=== PATIENT | male | born 1950 | race Caucasian/White ===

== ENCOUNTER → 2016-11-19 | Outpatient (CLI) | payer OTHER | END | disposition home or self-care (01) | LOC: CFH 10:41 | PROVIDERS: ATTEND Internal Medicine | DX: M51.37 Other intervertebral disc degeneration, lumbosacral region (principal); M51.36 Other intervertebral disc degeneration, lumbar region; M48.06 Spinal stenosis, lumbar region; M43.16 Spondylolisthesis, lumbar region; M12.88 Other specific arthropathies, not elsewhere classified, other specified site; M25.78 Osteophyte, vertebrae | CPT/HCPCS: 72148 ==

== ENCOUNTER 2017-02-17 11:08 | Inpatient (IN) | payer OTHER, MEDICARE ==
[~2017-02-17] VITALS: Ht 182.9 cm; Wt 101.0 kg
[2017-02-17] MEDS ORDERED: ROSU40TA PO (11:24)
[2017-02-17] MEDS ORDERED: ASPI-496 PO (11:24)
[2017-02-17] MEDS ORDERED: LOSA1TAB25 PO (11:25)
[2017-02-17] MEDS ORDERED: METO-93 PO (11:25)
[2017-02-17] MEDS ORDERED: FLUO20TA25 PO (11:26)
[2017-02-17] MEDS ORDERED: PANT40TA3 PO (11:27)
[2017-02-17] MEDS ORDERED: CHOL5000 PO (11:28)
[2017-02-17] MEDS ORDERED: FLUT9.9S16 NAS (11:30)
[2017-02-17] MEDS ORDERED: BRIN10DR LEFTEYE (11:31)
[2017-02-17] MEDS ORDERED: OLOP5DRO EACHEYE (11:32)
[2017-02-17] MEDS ORDERED: UBID100C41 PO (11:32)
[2017-02-17] MEDS ORDERED: SELE200T10 PO (11:33)
[2017-02-17] MEDS ORDERED: OMEG-14 PO (11:34)
[2017-02-17] MEDS ORDERED: MAGN500T PO (11:35)
[2017-02-17] MEDS ORDERED: LACT1CAP43 PO (11:35)
[2017-02-17 12:15] LABS: HEMOGLOBIN 15.8 g/dL (13.7-18.0); WHITE BLOOD COUNT 6.6 x10^3/uL (3.4-10)
[2017-02-17 12:24] LABS: BLOOD UREA NITROGEN 22 mg/dL (7-18)
[2017-02-17 12:31] LABS: IS PT STATUS REG ER OR PRE ER? YES
[2017-02-17] MEDS ORDERED: NITROGLYCERIN SINGLE TAB 0.4 MG SL PRN (15:00)
[2017-02-17] MEDS ORDERED: ACETAMINOPHEN 650 MG/20.3 ML UDC PO PRN (15:00)
[2017-02-17] MEDS ORDERED: morphine SULFATE 10 MG/ML, 1ML IV PRN (15:00)
[2017-02-17] MEDS ORDERED: ONDANSETRON 2MG/ML, 2ML IVP PRN (15:00)
[2017-02-17] MEDS ORDERED: POTASSIUM CHLORIDE 20 MEQ TAB.ER.PRT PO ONE (15:00)
[2017-02-17] MEDS ORDERED: ENOXAPARIN 40 MG/0.4 ML ONE (15:49)
[2017-02-17] MEDS ORDERED: POTASSIUM CHLORIDE 20 MEQ TAB.ER.PRT ONE (15:49)
[2017-02-17] MEDS: ENOXAPARIN 40 MG/0.4 ML SQ SCH (15:52)
[2017-02-17] MEDS: SUCRALFATE 1 GM/10 ML UDC PO SCH ×2 (17:02→22:08)
[2017-02-17 20:44] LABS: IS PT STATUS REG ER OR PRE ER? YES
[2017-02-17 20:51] VITALS: BP 154/92
[2017-02-17] MEDS ORDERED: LOSARTAN 50MG TABLET PO SCH (21:00)
[2017-02-17] MEDS ORDERED: METOPROLOL SUCCINATE 50 MG TAB.ER.24H PO SCH (21:00)
[2017-02-17] MEDS ORDERED: HYDROCHLOROTHIAZIDE 12.5 MG CAPSULE PO SCH (21:00)
[2017-02-17] MEDS ORDERED: ATORVASTATIN 80 MG TABLET PO SCH (21:00)
[2017-02-17] MEDS: BRINZOLAMIDE LEFTEYE SCH (21:00)
[2017-02-17] MEDS: SODIUM CHLORIDE FLUSH 10ML SYR IVF SCH (22:08)
[2017-02-17] MEDS: PANTOPROZOLE 40MG TABLET PO SCH (22:09)
[2017-02-18 00:59] VITALS: BP 143/74
[2017-02-18] MEDS ORDERED: ASPIRIN 325 MG TABLET EC PO SCH (06:00)
[2017-02-18] MEDS: SUCRALFATE 1 GM/10 ML UDC PO SCH ×2 (07:00→14:24)
[2017-02-18 07:20] VITALS: BP 137/84
[2017-02-18] MEDS ORDERED: REGADENOSON 0.4 MG/5 ML SYRINGE ONE (08:21)
[2017-02-18 08:27] LABS: ASPARTATE AMINO TRANSFERASE 18 U/L (15-37); BLOOD UREA NITROGEN 22 mg/dL (7-18)
[2017-02-18 08:32] LABS: IS PT STATUS REG ER OR PRE ER? NO
[2017-02-18 08:33] LABS: HEMATOCRIT 45.9 % (39.2-51.8); HEMOGLOBIN 15.9 g/dL (13.7-18.0); WHITE BLOOD COUNT 5.4 x10^3/uL (3.4-10)
[2017-02-18] MEDS ORDERED: MAGNESIUM OXIDE 400 MG TABLET PO SCH (09:00)
[2017-02-18] MEDS ORDERED: FLUTICASONE NASAL SPRAY 16GM NAS SCH (09:00)
[2017-02-18] MEDS ORDERED: FLUOXETINE 20 MG CAPSULE PO SCH (09:00)
[2017-02-18] MEDS: SODIUM CHLORIDE FLUSH 10ML SYR IVF SCH (09:00)
[2017-02-18] MEDS ORDERED: LACTOBACILLUS CHEW TABLET PO SCH (09:00)
[2017-02-18] MEDS ORDERED: SELENOMETHIONINE 200 MCG PO SCH (09:00)
[2017-02-18] MEDS ORDERED: OMEGA-3/FISH OIL CAPSULE PO SCH (09:00)
[2017-02-18] MEDS: BRINZOLAMIDE LEFTEYE SCH (09:00)
[2017-02-18] MEDS ORDERED: UBIDECARENONE 100 MG PO SCH (09:00)
[2017-02-18] MEDS ORDERED: CHOLECALCIFEROL 1,000 UNIT TABLET PO SCH (09:00)
[2017-02-18] MEDS: PANTOPROZOLE 40MG TABLET PO SCH (14:25)
[2017-02-18] MEDS: ENOXAPARIN 40 MG/0.4 ML SQ SCH (14:31)
[2017-02-18] MEDS ORDERED: PANT40TA3 PO (14:51)
[2017-02-18 15:31] VITALS: BP 129/80
== END 2017-02-18 17:55 | disposition home or self-care (01) | DRG 392 ==
LOC: ED 12:48 → EDIP 12:49 → ED 13:29 → 5SO 20:52
PROVIDERS: ADMIT Hospitalist; ATTEND Hospitalist
DX: K21.9 Gastro-esophageal reflux disease without esophagitis (principal); E78.1 Pure hyperglyceridemia; I10 Essential (primary) hypertension; E78.5 Hyperlipidemia, unspecified; E87.6 Hypokalemia; F32.9 Major depressive disorder, single episode, unspecified; F41.9 Anxiety disorder, unspecified; G89.29 Other chronic pain; M79.1 Myalgia; R09.82 Postnasal drip; M54.30 Sciatica, unspecified side; J30.9 Allergic rhinitis, unspecified; I25.10 Atherosclerotic heart disease of native coronary artery without angina pectoris; I25.2 Old myocardial infarction; Z95.5 Presence of coronary angioplasty implant and graft; Z80.3 Family history of malignant neoplasm of breast; Z82.49 Family history of ischemic heart disease and other diseases of the circulatory system; Z85.46 Personal history of malignant neoplasm of prostate; Z90.79 Acquired absence of other genital organ(s); Z98.49 Cataract extraction status, unspecified eye
CPT/HCPCS: 36415; 71010; 78452; 80048; 80053; 80061; 82040; 83735; 84443; 84484; 85025; 93005; 93017; 96372; J1650; J2785; A9502; C9898

== ENCOUNTER → 2017-06-25 | Outpatient (CLI) | payer MEDICARE, OTHER ==
[~2017-06-25] MED LIST: ASPI-496 PO; BRIN10DR LEFTEYE; CHOL5000 PO; FLUO20TA25 PO; FLUT9.9S16 NAS; LACT1CAP43 PO; LOSA1TAB25 PO; MAGN500T PO; METO-93 PO; OLOP5DRO EACHEYE; OMEG-14 PO; PANT40TA3 PO; ROSU40TA PO; SELE200T10 PO; UBID100C41 PO
== END | disposition home or self-care (01) ==
LOC: CFH 08:13
PROVIDERS: ATTEND Internal Medicine
DX: I71.4 Abdominal aortic aneurysm, without rupture (principal); I25.10 Atherosclerotic heart disease of native coronary artery without angina pectoris; I10 Essential (primary) hypertension
CPT/HCPCS: 93978

== ENCOUNTER 2018-07-11 08:48 | Outpatient (CLI) | payer OTHER | END 2018-07-11 23:59 | disposition home or self-care (01) | LOC: CFH 08:48 | PROVIDERS: ATTEND Internal Medicine Cardiovascular Disease | DX: I11.9 Hypertensive heart disease without heart failure (principal); I25.10 Atherosclerotic heart disease of native coronary artery without angina pectoris; E78.5 Hyperlipidemia, unspecified; I25.2 Old myocardial infarction; Z85.46 Personal history of malignant neoplasm of prostate; Z95.2 Presence of prosthetic heart valve | CPT/HCPCS: 93306 ==

== ENCOUNTER → 2019-09-25 | Outpatient (CLI) | payer OTHER ==
[~2019-09-25] MED LIST changes: +REGADENOSON 0.4 MG/5 ML SYRINGE ONE
== END | disposition home or self-care (01) ==
LOC: CFH 08:08
PROVIDERS: ATTEND Internal Medicine Cardiovascular Disease
DX: I25.10 Atherosclerotic heart disease of native coronary artery without angina pectoris (principal)
CPT/HCPCS: 78452; 93017; A9502; J2785

== ENCOUNTER → 2020-11-29 | Outpatient (CLI) | payer OTHER ==
[~2020-11-29] MED LIST changes: +DICL100G25 TP; +EZET10TA70 PO; +IBUP200C8 PO; +PREG25CA PO; -REGADENOSON 0.4 MG/5 ML SYRINGE ONE; +selenium PO
[2020-11-29 09:55] LABS: MICROSCOPIC INDICATED
[2020-11-29 09:59] LABS: ALANINE AMINOTRANSFERASE 48 U/L (12-78); ALBUMIN 3.8 g/dL (3.4-5.0); ANION GAP 6 mmol/L (5-15); BASOPHILS % (AUTO) 1 % (0-1); CALCIUM 9.2 mg/dL (8.5-10.1); CHLORIDE 109 mmol/L (98-107); CREATININE 0.98 mg/dL (0.7-1.3); EOSINOPHILS % (AUTO) 3 % (1-7); LYMPHOCYTES % (AUTO) 15 % (22-44); MEAN CORPUSCULAR HEMOGLOBIN 30.8 pg (27.5-34.5); MEAN CORPUSCULAR HGB CONC 34.6 g/dL (33.2-36.2); MEAN PLATELET VOLUME 7.3 fL (7.4-10.4); MONOCYTES % (AUTO) 12 % (2-9); NEUTROPHILS % (AUTO) 70 % (42-75); PLATELET COUNT 227 x10^3/uL (130-400); RED BLOOD COUNT 4.94 x10^6/uL (4.38-5.82)
[2020-11-29 10:01] LABS: ALKALINE PHOSPHATASE 68 U/L (45-117); BILIRUBIN,TOTAL 0.8 mg/dL (0.2-1.0); TOTAL PROTEIN 7.1 g/dL (6.4-8.2)
[2020-11-29 10:04] LABS: PROTHROMBIN TIME 10.7 Seconds (9.6-11.5)
== END | disposition home or self-care (01) ==
LOC: STAR 08:24
PROVIDERS: ATTEND Neurological Surgery
DX: Z01.812 Encounter for preprocedural laboratory examination (principal); Z20.822 Contact with and (suspected) exposure to COVID-19; M48.062 Spinal stenosis, lumbar region with neurogenic claudication
CPT/HCPCS: 36415; 80053; 81001; 85025; 85610; 85730; 87635; 93005

== ENCOUNTER 2020-12-05 05:26 | Day surgery (SDC) | payer OTHER ==
[~2020-12-05] VITALS: Ht 182.9 cm; Wt 116.6 kg
[2020-12-05 06:08] VITALS: BP 162/89
== END 2020-12-05 11:03 | disposition home or self-care (01) ==
LOC: OUT 05:26
PROVIDERS: ATTEND Neurological Surgery
DX: M48.062 Spinal stenosis, lumbar region with neurogenic claudication (principal); I25.10 Atherosclerotic heart disease of native coronary artery without angina pectoris; I10 Essential (primary) hypertension; E78.5 Hyperlipidemia, unspecified; K21.9 Gastro-esophageal reflux disease without esophagitis; F41.8 Other specified anxiety disorders; Z79.82 Long term (current) use of aspirin; Z79.899 Other long term (current) drug therapy; Z88.0 Allergy status to penicillin; Z88.8 Allergy status to other drugs, medicaments and biological substances; Z98.890 Other specified postprocedural states; Z82.49 Family history of ischemic heart disease and other diseases of the circulatory system
CPT/HCPCS: 63030; 63035; 71046; 72100; J0171; J0330; J0690; J1100; J1885; J2405; J2704; J2930; J3010; J7120